=== PATIENT | female | born 1975 | race Caucasian/White ===

== ENCOUNTER 2016-06-29 16:49 | Emergency (ER) | payer MEDICAID ==
[2016-06-29 16:49] VITALS: BMI 23.2
[2016-06-29 16:52] VITALS: O2SAT 100
[2016-06-29] MEDS ORDERED: Sodium Chloride 0.9% 1,000 ML IV ONE (17:09)
--- NOTE | 2016-06-29 17:22 | C.PDOC ---
History Of Present Illness 41 y/o female presents to ED with complaints of urinary frequency and dysuria for x2 days, blood in urine noted last night and lower abdominal pain with radiation to back. Patient deneis fever, chills, N/V/D or vaginal discharge. Patient took advil with no relief. No other complaints at this time. Time Seen by Provider: 06/29/16 17:06 Chief Complaint (Nursing): Female Genitourinary History Per: Patient History/Exam Limitations: no limitations Onset/Duration Of Symptoms: Days Current Symptoms Are (Timing): Still Present Associated Symptoms: denies: Fever, Chills, Nausea Past Medical History Reviewed: Historical Data, Nursing Documentation, Vital Signs Vital Signs: Last Vital Signs Temp 98 F 06/29/16 18:53 Pulse 68 06/29/16 18:53 Resp 18 06/29/16 18:53 BP 107/75 06/29/16 18:53 Pulse Ox 100 06/29/16 18:53 - Medical History PMH: Migraine Family History: States: Unknown Family Hx - Social History Hx Tobacco Use: No Hx Alcohol Use: No Hx Substance Use: No - Immunization History Hx Tetanus Toxoid Vaccination: No Hx Influenza Vaccination: No Hx Pneumococcal Vaccination: No Review Of Systems Constitutional: Negative for: Fever, Chills Cardiovascular: Negative for: Chest Pain Respiratory: Negative for: Shortness of Breath Gastrointestinal: Negative for: Nausea, Vomiting, Diarrhea Genitourinary: Positive for: Dysuria, Frequency, Pelvic Pain. Negative for: Vaginal Discharge Neurological: Negative for: Weakness, Headache, Dizziness Physical Exam - Physical Exam Appears: Non-toxic, Other (uncomfortable in pain) Skin: Normal Color, Warm Head: Atraumatic, Normacephalic Eye(s): bilateral: Normal Inspection, EOMI Nose: Normal Oral Mucosa: Moist Neck: Normal ROM, Supple Chest: Symmetrical Cardiovascular: Rhythm Regular, No Murmur Respiratory: Normal Breath Sounds, No Rales, No Rhonchi, No Wheezing Gastrointestinal/Abdominal: Soft, Tenderness (Superpubic ), No Mass, No Distention, No Guarding, No Rebound Back: CVA Tenderness (right) Extremity: Normal ROM, No Tenderness, No Pedal Edema, No Deformity, No Swelling Neurological/Psych: Oriented x3, Normal Speech, Other (No focal deficits) Gait: Steady ED Course And Treatment - Laboratory Results Result Diagrams: 06/29/16 17:31 06/29/16 17:31 Lab Interpretation: No Acute Changes O2 Sat by Pulse Oximetry: 100 (Room air ) Pulse Ox Interpretation: Normal Medical Decision Making Medical Decision Making: Impression : Dysuria Plan: Labs, urine Progress: Labs reviewed with no leukocytosis or bands, no electrolyte abnormality. UA shows UTI. Will treat with Rocephin IVP and discharge with Rx. Instruct to drink fluids and to follow up with PCP outpatient Disposition Counseled Patient/Family Regarding: Need For Followup, Rx Given - Disposition Referrals: Fili Byrne MD [Family Provider] - Disposition: HOME/ ROUTINE Disposition Time: 18:36 Condition: STABLE Additional Instructions: Vaya a norris mdico o la clnica en 2-5 mckee sin falta, para mas evaluacin. [place] los medicamentos angle indicado. Volver a la beck de emergencia en cualquier momento si los sntomas persisten o empeoran. Prescriptions: Ciprofloxacin HCl [Cipro] 500 mg PO BID #14 tab Instructions: Urinary Tract Infection in Women (DC) Print Language: CROATIAN - POA Present On Arrival: None - Clinical Impression Clinical Impression: UTI (urinary tract infection) - PA / CENTER MEDICAL AND LAB DIRECTOR / Resident Statement MD/DO has reviewed & agrees with the documentation as recorded. - Scribe Statement The provider has reviewed the documentation as recorded by the Scribe Fatimah Watts All medical record entries made by the Scribe were at my direction and personally dictated by me. I have reviewed the chart and agree that the record accurately reflects my personal performance of the history, physical exam, medical decision making, and the department course for this patient. I have also personally directed, reviewed, and agree with the discharge instructions and disposition.
[2016-06-29 17:35] LABS: BASO % 0.2 % (0.0-2.0); EOS # 0.2 K/uL (0.0-0.7); EOS % 1.8 % (0.0-4.0); HEMATOCRIT 33.1 % (34.0-47.0); LYMPH # 1.5 K/uL (1.0-4.3); MEAN CELL VOLUME 87.7 fL (81.0-99.0); MEAN CORPUSCULAR HEMOGLOBIN 29.2 pg (27.0-31.0); MEAN CORPUSCULAR HGB CONC 33.2 g/dL (33.0-37.0); MEAN PLATELET VOLUME 10.1 fL (7.2-11.7); MONO # 0.7 K/uL (0.0-0.8); MONO % 7.4 % (0.0-10.0); RED CELL DISTRIBUTION WIDTH 14.5 % (11.5-14.5); WHITE BLOOD COUNT 10.1 K/uL (4.8-10.8)
[2016-06-29] MEDS ORDERED: Sodium Chloride 0.9% 1,000 ML ONE (17:42)
[2016-06-29 17:43] LABS: CHLORIDE 101 mmol/L (98-107); SODIUM 137 mmol/L (132-148)
[2016-06-29 17:46] LABS: ALB/GLOB RATIO 1.3 (1.0-2.1); ALKALINE PHOSPHATASE 56 U/L (38-126); ALT/SGPT 21 U/L (9-52); AST/SGOT 26 U/L (14-36); BILIRUBIN,TOTAL 0.5 mg/dL (0.2-1.3); BLOOD UREA NITROGEN 10 mg/dL (7-17); CARBON DIOXIDE 25 mmol/L (22-30); GFR AFRICAN-AMERICAN > 60; RBC URINE 401 /hpf (0-3); TOTAL PROTEIN 7.5 g/dL (6.3-8.3); URINE BACTERIA MANY (<OCC); URINE BILIRUBIN NEGATIVE (NEGATIVE); URINE BLOOD 3+ (NEGATIVE); URINE COLOR Amber (YELLOW); URINE GLUCOSE (UA) NORMAL (Normal); URINE KETONE TRACE mg/dL (NEGATIVE); URINE PROTEIN 2+ mg/dL (NEGATIVE); URINE UROBILINOGEN NORMAL mg/dL (0.2-1.0); WBC CLUMPS MANY /hpf; WBC URINE 6405 /hpf (0-5)
[2016-06-29 17:47] LABS: CALCIUM 8.8 mg/dl (8.6-10.4); GLUCOSE,RANDOM 101 mg/dL (65-105)
[2016-06-29 17:50] LABS: URINE LEUKOCYTE ESTERASE 3+ Leu/uL (Negative)
[2016-06-29] MEDS ORDERED: cefTRIAXone IV 1 gm in Dextros 50 ML IV ONE (18:00)
[2016-06-29] MEDS ORDERED: cefTRIAXone IV 1 gm in Dextros 50 ML IVPB ONE (18:05)
[2016-06-29 18:57] VITALS: BP 107/75; PULSE 68; RESP 18; TEMP 98
== END 2016-06-29 18:55 | disposition home or self-care (01) ==
LOC: C.ER 16:49
DX: N39.0 Urinary tract infection, site not specified (principal)
CPT/HCPCS: 80053; 81001; 84703; 85025; 87086; 87181; 96361; 96365; 96375; 99285; J0696; J1885; J7040

== ENCOUNTER 2018-03-13 09:58 | Emergency (ER) | payer MEDICAID ==
[2018-03-13 09:58] VITALS: BMI 23.2
[2018-03-13 10:09] VITALS: RESP 18; O2SAT 100
--- NOTE | 2018-03-13 10:22 | C.PDOC ---
History Of Present Illness 43 y/o female with a PMHx of rheumatoid arthritis, Lupus, and previous UTIs, presents to the ED complaining of left-sided back pain for 3 days. Patient tried seeing her braided rug maker today, Dr. Quintana, and was sent to the ED because she did not have an appointment. States she usually receives weekly Humira shots for her rheumatoid arthritis, but notes she missed it on Sunday because she had a UTI. Reports finishing her course of antibiotics on Sunday. Back pain is described as stabbing, not similar to previous episodes of kidney stones. Pain worsens when sitting or applying pressure. No associated trauma or fall. Otherwise patient denies any fever, chills, night sweats, vaginal discharge, constipation, diarrhea, nausea, or vomiting. No extremity weakness, enuresis, encopareisi, numbness, or saddle anesthesia. Time Seen by Provider: 03/13/18 10:22 Chief Complaint (Nursing): Back Pain History Per: Patient History/Exam Limitations: no limitations Onset/Duration Of Symptoms: Days Current Symptoms Are (Timing): Still Present Quality Of Discomfort: Stabbing Severity: Moderate Associated Symptoms: None Past Medical History Reviewed: Historical Data, Nursing Documentation, Vital Signs Vital Signs: Last Vital Signs Temp 97.8 F 03/13/18 10:05 Pulse 78 03/13/18 10:05 Resp 18 03/13/18 10:05 BP 114/79 03/13/18 10:05 Pulse Ox 100 03/13/18 10:05 - Medical History PMH: Arthritis, Migraine, Rheumatoid Arthritis Other PMH: Lupus Family History: States: Unknown Family Hx - Social History Hx Tobacco Use: No Hx Alcohol Use: No Hx Substance Use: No - Immunization History Hx Tetanus Toxoid Vaccination: No Hx Influenza Vaccination: No Hx Pneumococcal Vaccination: No Review Of Systems Constitutional: Negative for: Fever, Chills, Sweats Eyes: Negative for: Pain, Vision Change ENT: Negative for: Ear Pain, Ear Discharge Cardiovascular: Negative for: Chest Pain Respiratory: Negative for: Cough, Shortness of Breath, SOB with Excertion Gastrointestinal: Negative for: Nausea, Vomiting, Diarrhea, Constipation Genitourinary: Negative for: Dysuria, Incontinence, Vaginal Discharge Musculoskeletal: Positive for: Back Pain (left lower) Skin: Negative for: Rash Neurological: Negative for: Weakness, Numbness, Incoordination, Confusion Physical Exam - Physical Exam Appears: Non-toxic, No Acute Distress Skin: Warm, Dry, No Rash Head: Normacephalic Eye(s): bilateral: Normal Inspection, PERRL, EOMI Oral Mucosa: Moist Tongue: Normal Appearing Lips: Normal Appearing Teeth: Normal Dentition Gingiva: Normal Appearing Throat: Normal, No Erythema, No Exudate Neck: Trachea Midline, Supple, Other (No meningeal signs- negative kernig's and brudzinskis) Chest: Symmetrical Respiratory: No Accessory Muscle Use, Other (Normal inspiratory effort) Gastrointestinal/Abdominal: Soft, No Distention Back: CVA Tenderness (Left), No Vertebral Tenderness, Paraspinal Tenderness (Left paralumbar tenderness) Extremity: Normal ROM Extremity: Bilateral: Normal Color And Temperature Pulses: Left Dorsalis Pedis: Normal, Right Dorsalis Pedis: Normal Neurological/Psych: Oriented x3, Normal Speech, Normal Cognition, Normal Motor (strength 5/5 throughout), Normal Sensation (intact to light touch at saddle region and extremities), Other (No focal deficits) Gait: Steady ED Course And Treatment - Laboratory Results Result Diagrams: 03/13/18 11:31 03/13/18 11:31 O2 Sat by Pulse Oximetry: 100 (RA) Pulse Ox Interpretation: Normal - CT Scan/US CT abd/pelvis Other Rad Studies (CT/US): Read By Radiologist, Radiology Report Reviewed CT/US Interpretation: Accession No. : [id number]. Patient Name / ID : MIKE RAMON / [id number]. Exam Date : 03/13/2018 11:34:53 ( Approved ). Study Comment : Sex / Age : F / 43Y. Creator : Brisa Salazar. Dictator : Chucho Isaac MD. Reel Film Inspector : Credentialer : Chucho Isaac MD. Approver2 : Report Date : 03/13/2018 11:54:35. My Comment : . Date of service: 03/13/2018. PROCEDURE: CT Abdomen and Pelvis with Oral contrast. HISTORY: Left-sided CVA tenderness in a patient with a history of stones. Left hip and lumbar pain. History of RA. COMPARISON: No prior study available for comparison. TECHNIQUE: Contiguous axial images of the abdomen and pelvis performed without oral or intravenous contrast material. Additional 2D sagittal and coronal reformats generated. Radiation dose: Total exam DLP = 349.89 mGy-cm. This CT exam was performed using one or more of the following dose reduction techniques: Automated exposure control, adjustment of the mA and/or kV according to patient size, and/or use of iterative reconstruction technique. FINDINGS: LOWER THORAX: Heart size within range of normal. No significant pericardial effusion. There is a small hiatal hernia. Some minor linear atelectasis left lower lung field extending to the inferior pleural surface abutting the diaphragm. LIVER: Unremarkable. No gross lesion or ductal dilatation. GALLBLADDER AND BILE DUCTS: Gallbladder is physiologically distended. No evidence of intraluminal gallbladder calculi. This. PANCREAS: Unenhanced pancreas appears grossly unremarkable without obvious mass collection calcification or significant ductal dilatation. SPLEEN: Spleen exhibits normal size and attenuation pattern without mass collection or calcification. ADRENALS: No adrenal lesions are identified. KIDNEYS AND URETERS: Kidneys demonstrate relatively symmetric size. No evidence of nephrolithiasis or hydronephrosis. No obvious renal lesions are identified. BLADDER: The urinary bladder is not well delineated on this exam and is likely incompletely distended and further compressed by a large is lobulated mass lesion that appears to arise from the anterior uterine body as mentioned below. The. This probably represents a large serosal surface uterine fibroid. REPRODUCTIVE: There is a large approximately 6.8 x 5.7 6.6 cm low-attenuation mass lesion which appears to arise from the anterior body of the uterus and extends inferiorly and anteriorly. This lesion probably represents a larger fibroid however follow-up of pelvic ultrasound recommended to confirm.. Linear radiopaque densities seen in the distribution of the fallopian tubes consistent with in situ Essure IUD devices. Clinical correlation with history is also recommended. APPENDIX: Normal-appearing appendix best seen on axial series 3 image number [id number]. No evidence of periappendiceal inflammatory changes. . BOWEL: Evaluation of the bowel is somewhat limited due to the lack of oral contrast material. The stomach is distended with food debris liquid and air. Visualized loops of small bowel exhibit relatively normal contour and caliber. No evidence of acute mechanical small bowel obstruction.. PERITONEUM: Unremarkable. No fluid collection. No free air. LYMPH NODES: Unremarkable. No enlarged lymph nodes. VASCULATURE: Unremarkable. No aortic aneurysm. No aortic atherosclerotic calcification or mural plaque present. BONES: No fracture or destructive lesion. OTHER FINDINGS: None. IMPRESSION: There is a large hypodense low-attenuation lesion which appears to arise from the anterior surface of the uterus and results in significant compression of the urinary bladder. Findings likely represent a large serosal surface uterine fibroid however follow-up of pelvic ultrasound recommended to confirm and exclude other pathology. In situ bilateral Essure IUD device is. No evidence of nephrolithiasis or hydronephrosis. Medical Decision Making Medical Decision Makin43 y/o F presenting with left-sided low back pain. No urinary complaints. No extremity weakness, numbness, or saddle anesthesia. + Hx of Lupus, RA, and previous UTIs. States she completed antibiotics for a UTI 3 days ago. Also notes she missed her weekly Humira injection 4 days ago. No neck pain or stiffness. No fever or rash noted. N/V intact distally. No GI OR complaints. Impression: Kidney stone vs. UTI vs. Musculoskeletal back pain Plan: --Blood work --Urinalysis --Left hip x-ray --CT abdomen/pelvis --NS IV fluids --5 mg PO Flexeril --650 mg PO Tylenol --Reassess after treatment 1300 Patient notes pain much improved Mild UTI, but given CVAT will rx as mild pyelo. No DM. Given outpt abx, pain meds and informed of ct findings regarding possible fibroid. She endorses understanding and will followup with her own OBGYN, UROLOGY, PMD and Rheum. Given return indication and f/u. Disposition - Disposition Referrals: Fili Byrne MD [Medical Doctor] - Matthew Lang MD [Staff Provider] - [facility] [Outside] [facility] [Outside] [facility] [Outside] Disposition: HOME/ ROUTINE Disposition Time: 13:22 Condition: GOOD Additional Instructions: FOLLOW UP WITH A UROLOGIST AND YOUR RHEUMATOID DOCTOR. RETURN IF WORSENING OR NOT IMPROVING OR FEVER FOLLOW UP WITH YOUR OBGYN IN REGARDS TO YOUR FIBROID WELL . YOU WILL PROBABLY NEED ULTRASOUND OUTPATIENT YENNY MCKEON, thank you for letting us take care of you today. Your provider was Fer Aguirre and you were treated for BACK PAIN. The emergency medical care you received today was directed at your acute symptoms. If you were prescribed any medication, please fill it and take as directed. It may take several days for your symptoms to resolve. Return to the Emergency Department if your symptoms worsen, do not improve, or if you have any other problems. Please contact your doctor or call one of the physicians/clinics you have been referred to that are listed on the Patient Visit Information form that is included in your discharge packet. Bring any paperwork you were given at discharge with you along with any medications you are taking to your follow up visit. Our treatment cannot replace ongoing medical care by a primary care provider outside of the emergency department. Thank you for allowing the [facility] team to be part of your care today. If you had an X-Ray or CT scan: A Radiologist will review the ED reading if any change in treatment is needed we will contact you. If you had a blood, urine, or wound culture: It will take several days for the results, if any change in treatment is needed we will contact you. If you had an STI test: It will take 48 hours for the results. Please call after 1 week if you have not heard back. Prescriptions: Ciprofloxacin [Cipro] 500 mg PO BID 7 Days #14 tab Cyclobenzaprine [Flexeril] 5 mg PO Q24H PRN 5 Days #5 tab PRN Reason: Pain, Moderate (4-7) Instructions: Muscle Strain, Low Back Pain (DC), Urinary Tract Infection, Adult (DC) Forms: [facility] ([facility]) - Clinical Impression Clinical Impression: UTI (urinary tract infection), Low back strain, Sciatica - Scribe Statement The provider has reviewed the documentation as recorded by the Felicita Cain Provider Attestation: All medical record entries made by the Barronibmarly were at my direction and personally dictated by me. I have reviewed the chart and agree that the record accurately reflects my personal performance of the history, physical exam, medical decision making, and the department course for this patient. I have also personally directed, reviewed, and agree with the discharge instructions and disposition.
[2018-03-13] MEDS ORDERED: Sodium Chloride 0.9% 1,000 ML IV ONE (10:48)
[2018-03-13] MEDS ORDERED: Sodium Chloride 0.9% 1,000 ML ONE (11:11)
[2018-03-13 11:39] LABS: BASO % 0.6 % (0.0-2.0); EOS # 0.1 K/uL (0.0-0.7); EOS % 2.4 % (0.0-4.0); HEMOGLOBIN 11.7 g/dL (11.0-16.0); LYMPH # 1.5 K/uL (1.0-4.3); LYMPH % 35.8 % (20.0-40.0); MEAN CELL VOLUME 88.4 fL (81.0-99.0); MEAN CORPUSCULAR HEMOGLOBIN 28.9 pg (27.0-31.0); MEAN CORPUSCULAR HGB CONC 32.7 g/dL (33.0-37.0); MEAN PLATELET VOLUME 9.7 fL (7.2-11.7); MONO # 0.3 K/uL (0.0-0.8); MONO % 8.3 % (0.0-10.0); NEUT # 2.2 K/uL (1.8-7.0); NEUT % 52.9 % (50.0-75.0); NRBC % 0.1 % (0.0-2.0); RBC 4.04 Mil/uL (3.80-5.20); RED CELL DISTRIBUTION WIDTH 13.8 % (11.5-14.5)
[2018-03-13 11:42] LABS: WHITE BLOOD COUNT 4.1 K/uL (4.8-10.8)
[2018-03-13 11:53] LABS: ALB/GLOB RATIO 1.4 (1.0-2.1); ALBUMIN 4.9 g/dL (3.5-5.0); ALT/SGPT 8 U/L (9-52); AST/SGOT 29 U/L (14-36); BLOOD UREA NITROGEN 12 mg/dL (7-17); CALCIUM 9.6 mg/dl (8.6-10.4); GFR NON-AFRICAN AMERICAN > 60
[2018-03-13 12:18] LABS: SQUAMOUS EPITHIAL 2 /hpf (0-5); URINE BACTERIA RARE (<OCC); URINE BILIRUBIN NEGATIVE (NEGATIVE); URINE BLOOD 3+ (NEGATIVE); URINE CLARITY Hazy (Clear); URINE COLOR Yellow (YELLOW); URINE GLUCOSE (UA) NORMAL (Normal); URINE LEUKOCYTE ESTERASE TRACE Leu/uL (Negative); URINE PROTEIN NEGATIVE (NEGATIVE); URINE UROBILINOGEN NORMAL mg/dL (0.2-1.0)
--- NOTE | 2018-03-13 13:06 | CT ---
Date of service: 03/13/2018 PROCEDURE: CT Abdomen and Pelvis with Oral contrast. HISTORY: Left-sided CVA tenderness in a patient with a history of stones. Left hip and lumbar pain. History of RA. COMPARISON: No prior study available for comparison TECHNIQUE: Contiguous axial images of the abdomen and pelvis performed without oral or intravenous contrast material. Additional 2D sagittal and coronal reformats generated. Radiation dose: Total exam DLP = 349.89 mGy-cm. This CT exam was performed using one or more of the following dose reduction techniques: Automated exposure control, adjustment of the mA and/or kV according to patient size, and/or use of iterative reconstruction technique. FINDINGS: LOWER THORAX: Heart size within range of normal. No significant pericardial effusion. There is a small hiatal hernia. Some minor linear atelectasis left lower lung field extending to the inferior pleural surface abutting the diaphragm. LIVER: Unremarkable. No gross lesion or ductal dilatation. GALLBLADDER AND BILE DUCTS: Gallbladder is physiologically distended. No evidence of intraluminal gallbladder calculi. This PANCREAS: Unenhanced pancreas appears grossly unremarkable without obvious mass collection calcification or significant ductal dilatation. SPLEEN: Spleen exhibits normal size and attenuation pattern without mass collection or calcification. ADRENALS: No adrenal lesions are identified. KIDNEYS AND URETERS: Kidneys demonstrate relatively symmetric size. No evidence of nephrolithiasis or hydronephrosis. No obvious renal lesions are identified. BLADDER: The urinary bladder is not well delineated on this exam and is likely incompletely distended and further compressed by a large is lobulated mass lesion that appears to arise from the anterior uterine body as mentioned below. The. This probably represents a large serosal surface uterine fibroid. REPRODUCTIVE: There is a large approximately 6.8 x 5.7 6.6 cm low-attenuation mass lesion which appears to arise from the anterior body of the uterus and extends inferiorly and anteriorly. This lesion probably represents a larger fibroid however follow-up of pelvic ultrasound recommended to confirm.. Linear radiopaque densities seen in the distribution of the fallopian tubes consistent with in situ Essure IUD devices. Clinical correlation with history is also recommended. APPENDIX: Normal-appearing appendix best seen on axial series 3 image number [id number]. No evidence of periappendiceal inflammatory changes. . BOWEL: Evaluation of the bowel is somewhat limited due to the lack of oral contrast material. The stomach is distended with food debris liquid and air. Visualized loops of small bowel exhibit relatively normal contour and caliber. No evidence of acute mechanical small bowel obstruction.. PERITONEUM: Unremarkable. No fluid collection. No free air. LYMPH NODES: Unremarkable. No enlarged lymph nodes. VASCULATURE: Unremarkable. No aortic aneurysm. No aortic atherosclerotic calcification or mural plaque present. BONES: No fracture or destructive lesion. OTHER FINDINGS: None. IMPRESSION: There is a large hypodense low-attenuation lesion which appears to arise from the anterior surface of the uterus and results in significant compression of the urinary bladder. Findings likely represent a large serosal surface uterine fibroid however follow-up of pelvic ultrasound recommended to confirm and exclude other pathology. In situ bilateral Essure IUD device is No evidence of nephrolithiasis or hydronephrosis.
[2018-03-13] MEDS ORDERED: cefTRIAXone IV 1 gm in Dextros 50 ML IVPB STA (13:21)
[2018-03-13 14:21] VITALS: BP 111/75; PULSE 88; TEMP 98.1
--- NOTE | 2018-03-13 15:04 | RAD ---
Indication: L hip pain Left hip with pelvis radiographs Comparison: CT abdomen and pelvis without contrast performed 03/13/18 Findings: Bilateral tubal ligation devices. No acute displaced fracture or dislocation identified. Sacroiliac joints appear intact. Mild constipation. Soft tissues appear unremarkable. No evidence of radiopaque foreign body. Impression: No acute displaced fracture or dislocation evident.
== END 2018-03-13 14:25 | disposition home or self-care (01) ==
LOC: C.ER 09:58
DX: S39.012A Strain of muscle, fascia and tendon of lower back, initial encounter (principal); X58.XXXA Exposure to other specified factors, initial encounter; N39.0 Urinary tract infection, site not specified; M54.30 Sciatica, unspecified side; M06.9 Rheumatoid arthritis, unspecified; M32.9 Systemic lupus erythematosus, unspecified
CPT/HCPCS: 73502; 74176; 80053; 81001; 81025; 85025; 96365; 99285; J0696; J7030